=== PATIENT | female | born 1935 | race African-American/Black ===

== ENCOUNTER → 2016-07-17 | Outpatient (CLI) | payer MEDICARE, MEDICAID ==
[~2016-07-17] MED LIST: AGGRENOX ER 251 CER PO; ATIVAN 0.50.5 MG/TAB PO; BACTRIM DS 8001 TAB PO; BISACODYL10 MG RC; CALCIUM CARB W/1 TA1 PO; COLACE 100100 MG/CAP PO; COZAAR 25MG25 MG/TAB PO; COZAAR100 MG PO; EPA FISH OIL1000 MG PO; EPA/GLA1 SGL PO; ERY-TAB250 MG PO; FENTANYL 25 MCG TP; FENTANYL 50MCG TOP; FERROUS SU325 MG/TAB PO; FOSAMAX 70MG TA70 MG PO; HCTZ 25MG TAB25 MG PO; HCTZ 25MG25 MG PO; HUMALOG SQ; HUMALOG100 U/ML SC; HUMALOG100 U/ML SQ; IRON325 M1 PO; JUVEN PO; LANTUS100 U/ML SC; LEVEMIR100 U/ML SQ; LEXAPRO 10MG10 MG PO; LIPITOR 10MG10 MG PO; LIPITOR40 MG PO; LORTAB 10/500 51 TAB PO; LORTAB 5/500 501 TAB PO; MACROBID 1100 MG/CAP PO; MERREM IV; MIRALAX PA17 GM/Dose PO; MYLANTA 150 ML150 M1 PO; NORCO 325 MG-51 TAB PO; NORCO 325 MG-7.1 TAB PO; NORVASC 5MG5 MG/TAB PO; NOVLOG; NOVLOG SQ; NOVOLOG 100U100 U/M1; NOVOLOG 100U100 U/M1 SC; NOVOLOG 100U100 U/M1 SQ; OXECTA5 MG PO; OXY IR5 MG PO; OXYCONTIN 10MG10 MG PO; PEPCID 20MG TAB20 MG PO; PLAVIX 75MG TAB75 MG PO; PRILOSEC 20MG20 MG PO; PROCRIT 2,02 MU/VIAL IJ; PROSOURCE PLUS946 ML PO; REGLAN 5MG T5 MG/TAB PO; SILVADENE CREAM1 TU TP; SYSTANE 0.4%-0.1 SOL OU; TEGRETOL 1100 MG/TAB PO; THEREMS-M1 TAB PO; TYLENOL 325MG325 MG PO; VANCOMYCIN 11 G/VIAL IV; VITAMIN C500 MG PO; ZOCOR 40MG40 MG PO; ZOFRAN 4MG T4 MG/TAB; ZOFRAN 4MG T4 MG/TAB PO; [UNRECOGNIZED DRUG - OTHER] PO
[2016-07-17 12:15] LABS: PH 6 (5-8); SQUAMOUS EPITHELIAL 0-2 /hpf; URINE APPEARANCE Cloudy; URINE BACTERIA Rare /hpf; URINE BILIRUBIN Negative (NEGATIVE); URINE BLOOD Negative (NEGATIVE); URINE COLOR Yellow; URINE GLUCOSE Negative (NEGATIVE); URINE KETONE Negative (NEGATIVE); URINE UROBILINOGEN Negative (NEGATIVE); URINE WBC >50 /hpf
== END ==
LOC: ZLAB.STJ 11:22 → ZCOL.LAB 11:22
PROVIDERS: Internal Medicine
DX: Z01.89 Encounter for other specified special examinations (principal)

== ENCOUNTER → 2016-07-18 | Outpatient (CLI) | payer MEDICARE, MEDICAID ==
[2016-07-18 15:23] LABS: MEAN CELL VOLUME 103 fl (80.0-100.0); MEAN CORPUSCULAR HGB CONC 32 g/dl (33.0-37.0); MEAN PLATELET VOLUME 9.9 fl (7.4-10.4); PLATELET COUNT 296 K/mm3 (130-400); RED BLOOD COUNT 3.05 M/mm3 (4.10-5.30); REDCELL DISTRIBUTION WIDTH-CV 12.2 % (11.5-14.5); WHITE BLOOD COUNT 8.2 K/mm3 (4.8-10.8)
[2016-07-18 15:28] LABS: CREATININE, serum 1.35 mg/dL (0.52-1.25); POTASSIUM 4.2 mmol/L (3.4-5.0)
[2016-07-18 15:51] LABS: HEMATOCRIT 31.5 % (37.0-47.0); HEMOGLOBIN 10.2 g/dl (12.5-16.0); MEAN CORPUSCULAR HEMOGLOBIN 33 pg (27.0-31.0)
== END ==
LOC: COL.LAB 14:35
PROVIDERS: Internal Medicine
DX: N18.9 Chronic kidney disease, unspecified (principal); D64.89 Other specified anemias

== ENCOUNTER → 2016-08-24 | Outpatient (REF) ==
[2016-08-24 14:42] LABS: HIV-1p24 Antigen Non-Reactive
[2016-08-24 14:43] LABS: HIV 1/2 Antibodies Non-Reactive
== END ==
LOC: ZLAB.STJ 14:18
PROVIDERS: Internal Medicine
DX: Z01.89 Encounter for other specified special examinations (principal)

== ENCOUNTER → 2017-01-22 | Outpatient (CLI) | payer MEDICARE, MEDICAID | LOC: ZCOL.LAB 06:25 | DX: E11.319 Type 2 diabetes mellitus with unspecified diabetic retinopathy without macular edema (principal) ==

== ENCOUNTER → 2017-06-21 | Outpatient (CLI) | payer MEDICARE, MEDICAID ==
[2017-06-21 17:51] LABS: ADJUSTED CALCIUM 9.3 mg/dL (8.4-10.2); ALBUMIN 4.8 gm/dL (3.5-5.0); BILIRUBIN,TOTAL 0.5 mg/dL (0.0-1.0); CALCIUM 9.9 mg/dL (8.4-10.2); CREATININE, serum 1.26 mg/dL (0.52-1.25); POTASSIUM 4.3 mmol/L (3.4-5.0)
== END ==
LOC: COL.LAB 13:50 → ZLAB.STJ 13:50
PROVIDERS: Internal Medicine
DX: E83.52 Hypercalcemia (principal)

== ENCOUNTER → 2017-06-22 | Outpatient (CLI) | payer MEDICARE, MEDICAID ==
[2017-06-22 04:16] LABS: HIV 1/2 Antibodies Non-Reactive; HIV-1p24 Antigen Non-Reactive
[2017-06-22 15:58] LABS: HEPATITIS B SURFACE AB-QL Negative (()); HEPATITIS B SURFACE ANTIBODY <2.0 (())
== END ==
LOC: ZCOL.LAB 03:48
DX: Z01.89 Encounter for other specified special examinations (principal)

== ENCOUNTER → 2017-09-04 | Outpatient (CLI) | payer MEDICARE, MEDICAID ==
[2017-09-04 14:54] LABS: BASO # 0.1 (0.0-0.2); BASO % 0.6 % (0.0-2.0); EOS # 0.5 (0.0-0.7); EOS % 5.4 % (0-4.0); GRAN # 5.5 (1.4-6.5); GRAN % 59.1 % (42.2-75.2); LYMPH # 2.4 (1.2-3.4); LYMPH % 26.2 % (20.0-51.0); MEAN CELL VOLUME 99 fl (80.0-100.0); MEAN CORPUSCULAR HGB CONC 34 g/dl (33.0-37.0); MEAN PLATELET VOLUME 11.4 fl (7.4-10.4); MONO # 0.7 (0.1-0.6); MONO % 7.8 % (1.7-9.3); PLATELET COUNT 194 K/mm3 (130-400); RED BLOOD COUNT 3.23 M/mm3 (4.10-5.30)
[2017-09-04 14:58] LABS: HEMATOCRIT 32.1 % (37.0-47.0); HEMOGLOBIN 10.8 g/dl (12.5-16.0); MEAN CORPUSCULAR HEMOGLOBIN 33 pg (27.0-31.0)
[2017-09-04 15:15] LABS: ALBUMIN 4.6 gm/dL (3.5-5.0); BILIRUBIN,TOTAL 0.3 mg/dL (0.0-1.0); CALCIUM 9.5 mg/dL (8.4-10.2); CREATININE, serum 1.26 mg/dL (0.52-1.25); POTASSIUM 4.9 mmol/L (3.4-5.0); TOTAL PROTEIN 8.5 gm/dL (6.4-8.2)
== END ==
LOC: ZLAB.STJ 14:48
PROVIDERS: Internal Medicine
DX: E11.311 Type 2 diabetes mellitus with unspecified diabetic retinopathy with macular edema (principal)

== ENCOUNTER → 2017-09-20 | Outpatient (REF) ==
[2017-09-20 14:44] LABS: CALCIUM 10.2 mg/dL (8.4-10.2); CREATININE, serum 1.36 mg/dL (0.52-1.25); POTASSIUM 5.1 mmol/L (3.4-5.0)
== END ==
LOC: ZLAB.STJ 14:11
PROVIDERS: Internal Medicine
DX: Z01.89 Encounter for other specified special examinations (principal)

== ENCOUNTER → 2017-10-15 | Outpatient (CLI) | payer MEDICARE, MEDICAID ==
[2017-10-15 14:29] LABS: BASO # 0.1 (0.0-0.2); BASO % 0.7 % (0.0-2.0); EOS # 0.4 (0.0-0.7); EOS % 4.3 % (0-4.0); GRAN # 5.8 (1.4-6.5); GRAN % 58.2 % (42.2-75.2); LYMPH # 2.9 (1.2-3.4); LYMPH % 29.3 % (20.0-51.0); MEAN CELL VOLUME 99 fl (80.0-100.0); MEAN CORPUSCULAR HGB CONC 33 g/dl (33.0-37.0); MEAN PLATELET VOLUME 10.8 fl (7.4-10.4); MONO # 0.7 (0.1-0.6); MONO % 6.9 % (1.7-9.3); PLATELET COUNT 270 K/mm3 (130-400); RED BLOOD COUNT 3.58 M/mm3 (4.10-5.30); REDCELL DISTRIBUTION WIDTH-CV 12.2 % (11.5-14.5)
[2017-10-15 14:32] LABS: HEMATOCRIT 35.5 % (37.0-47.0); HEMOGLOBIN 11.7 g/dl (12.5-16.0); MEAN CORPUSCULAR HEMOGLOBIN 33 pg (27.0-31.0)
== END ==
LOC: ZLAB.STJ 14:25
PROVIDERS: Internal Medicine
DX: D64.9 Anemia, unspecified (principal)

== ENCOUNTER → 2017-11-15 | Outpatient (CLI) | payer MEDICARE, MEDICAID ==
[2017-11-15 10:14] LABS: CALCIUM 10.1 mg/dL (8.4-10.2); CREATININE, serum 1.34 mg/dL (0.52-1.25)
== END ==
LOC: ZLAB.STJ 09:50
PROVIDERS: Internal Medicine
DX: R79.89 Other specified abnormal findings of blood chemistry (principal)

== ENCOUNTER → 2018-01-24 | Outpatient (CLI) | payer MEDICARE, MEDICAID ==
[2018-01-24 16:01] LABS: BASO # 0.1 (0.0-0.2); BASO % 0.5 % (0.0-2.0); EOS # 0.3 (0.0-0.7); EOS % 2.9 % (0-4.0); GRAN # 6.1 (1.4-6.5); GRAN % 66.4 % (42.2-75.2); HEMOGLOBIN 11.3 g/dl (12.5-16.0); LYMPH % 21.7 % (20.0-51.0); MEAN CELL VOLUME 99 fl (80.0-100.0); MEAN CORPUSCULAR HEMOGLOBIN 33 pg (27.0-31.0); MEAN CORPUSCULAR HGB CONC 34 g/dl (33.0-37.0); MEAN PLATELET VOLUME 11.3 fl (7.4-10.4); MONO # 0.7 (0.1-0.6); MONO % 8.1 % (1.7-9.3); PLATELET COUNT 336 K/mm3 (130-400); RED BLOOD COUNT 3.38 M/mm3 (4.10-5.30); REDCELL DISTRIBUTION WIDTH-CV 12.3 % (11.5-14.5)
[2018-01-24 16:08] LABS: HEMATOCRIT 33.6 % (37.0-47.0)
[2018-01-24 16:14] LABS: ALBUMIN 4.7 gm/dL (3.5-5.0); BILIRUBIN,TOTAL 0.3 mg/dL (0.0-1.0); CREATININE, serum 1.36 mg/dL (0.52-1.25); TOTAL PROTEIN 8.5 gm/dL (6.4-8.2)
== END ==
LOC: ZLAB.STJ 15:05
PROVIDERS: Internal Medicine
DX: E11.51 Type 2 diabetes mellitus with diabetic peripheral angiopathy without gangrene (principal); R79.89 Other specified abnormal findings of blood chemistry; Z79.4 Long term (current) use of insulin

== ENCOUNTER → 2018-04-22 | Outpatient (CLI) | payer MEDICARE, MEDICAID | LOC: ZLAB.STJ 14:23 | DX: N18.9 Chronic kidney disease, unspecified (principal); E78.5 Hyperlipidemia, unspecified ==

== ENCOUNTER → 2018-07-24 | Outpatient (CLI) | payer MEDICARE, MEDICAID ==
[2018-07-24 10:19] LABS: BASO % 0.4 % (0.0-2.0); EOS # 0.6 (0.0-0.7); EOS % 7.8 % (0-4.0); GRAN # 4.4 (1.4-6.5); GRAN % 55.4 % (42.2-75.2); HEMOGLOBIN 10.1 g/dl (12.5-16.0); LYMPH # 2.2 (1.2-3.4); LYMPH % 26.9 % (20.0-51.0); MEAN CELL VOLUME 101 fl (80.0-100.0); MEAN CORPUSCULAR HEMOGLOBIN 33 pg (27.0-31.0); MEAN CORPUSCULAR HGB CONC 32 g/dl (33.0-37.0); MEAN PLATELET VOLUME 10.5 fl (7.4-10.4); MONO # 0.7 (0.1-0.6); MONO % 8.9 % (1.7-9.3); PLATELET COUNT 301 K/mm3 (130-400); RED BLOOD COUNT 3.09 M/mm3 (4.10-5.30); REDCELL DISTRIBUTION WIDTH-CV 12.2 % (11.5-14.5)
[2018-07-24 10:22] LABS: HEMATOCRIT 31.3 % (37.0-47.0)
[2018-07-24 10:27] LABS: CALCIUM 9.7 mg/dL (8.4-10.2); CREATININE, serum 1.44 mg/dL (0.52-1.25); POTASSIUM 5.2 mmol/L (3.4-5.0)
== END ==
LOC: ZLAB.STJ 09:36
PROVIDERS: Internal Medicine
DX: R79.89 Other specified abnormal findings of blood chemistry (principal); R73.09 Other abnormal glucose

== ENCOUNTER → 2018-08-07 | Outpatient (CLI) | payer MEDICARE, MEDICAID | LOC: ZLAB.STJ 10:19 | DX: E87.5 Hyperkalemia (principal) ==

== ENCOUNTER → 2018-08-25 | Outpatient (CLI) | payer MEDICARE ==
[2018-08-25 15:23] LABS: CALCIUM 9.8 mg/dL (8.4-10.2); CREATININE, serum 1.2 mg/dL (0.52-1.25); POTASSIUM 4.6 mmol/L (3.4-5.0)
== END ==
LOC: ZLAB.STJ 14:26
PROVIDERS: Internal Medicine
DX: N18.9 Chronic kidney disease, unspecified (principal)

== ENCOUNTER → 2018-11-26 | Outpatient (CLI) | payer MEDICARE ==
[2018-11-26 13:26] LABS: HEMATOCRIT 33.8 % (37.0-47.0); HEMOGLOBIN 10.7 g/dl (12.5-16.0)
[2018-11-26 13:40] LABS: CREATININE, serum 1.39 (0.52-1.25); POTASSIUM 5.2 mmol/L (3.4-5.0)
== END ==
LOC: ZLAB.STJ 10:33
PROVIDERS: Internal Medicine
DX: E78.5 Hyperlipidemia, unspecified (principal); E11.319 Type 2 diabetes mellitus with unspecified diabetic retinopathy without macular edema

== ENCOUNTER → 2019-03-19 | Outpatient (CLI) | payer MEDICARE ==
[2019-03-19 20:31] LABS: BASO % 0.4 % (0.0-2.0); EOS # 0.3 (0.0-0.7); GRAN # 5.3 (1.4-6.5); GRAN % 57.4 % (42.2-75.2); HEMOGLOBIN 11.5 g/dl (12.5-16.0); LYMPH # 2.8 (1.2-3.4); LYMPH % 30.9 % (20.0-51.0); MEAN CELL VOLUME 103 fl (80.0-100.0); MEAN CORPUSCULAR HEMOGLOBIN 33 pg (27.0-31.0); MEAN CORPUSCULAR HGB CONC 32 g/dl (33.0-37.0); MEAN PLATELET VOLUME 11.3 fl (7.4-10.4); MONO # 0.7 (0.1-0.6); MONO % 7.9 % (1.7-9.3); PLATELET COUNT 334 K/mm3 (130-400); REDCELL DISTRIBUTION WIDTH-CV 12.3 % (11.5-14.5)
[2019-03-19 20:43] LABS: ALBUMIN 5.1 gm/dL (3.5-5.0); BILIRUBIN,TOTAL 0.3 mg/dL (0.0-1.0); CALCIUM 10.3 mg/dL (8.4-10.2); CREATININE, serum 1.69 (0.52-1.25); POTASSIUM 4.9 mmol/L (3.4-5.0); TOTAL PROTEIN 9.9 gm/dL (6.4-8.2)
[2019-03-19 21:12] LABS: THYROID STIMULATING HORMONE 1.28 uIU/mL (0.465-4.680)
== END ==
LOC: ZLAB.STJ 19:00
PROVIDERS: Internal Medicine
DX: E11.311 Type 2 diabetes mellitus with unspecified diabetic retinopathy with macular edema (principal); N17.9 Acute kidney failure, unspecified

== ENCOUNTER → 2019-04-06 | Outpatient (CLI) | payer MEDICARE ==
[2019-04-06 12:44] LABS: HEMOGLOBIN 10.5 g/dl (12.5-16.0)
[2019-04-06 12:45] LABS: HEMATOCRIT 32.2 % (37.0-47.0)
[2019-04-06 12:50] LABS: ALBUMIN 4.4 gm/dL (3.5-5.0); BILIRUBIN,TOTAL 0.2 mg/dL (0.0-1.0); CALCIUM 9.9 mg/dL (8.4-10.2); CREATININE, serum 1.26 (0.52-1.25); POTASSIUM 4.7 mmol/L (3.4-5.0); TOTAL PROTEIN 8.1 gm/dL (6.4-8.2)
[2019-04-07 00:18] LABS: FOLATE (FOLIC ACID) 3.6 ng/mL (7.0-31.4)
== END ==
LOC: ZLAB.STJ 10:04
PROVIDERS: Internal Medicine
DX: D64.9 Anemia, unspecified (principal); N18.4 Chronic kidney disease, stage 4 (severe)

== ENCOUNTER → 2019-04-22 | Outpatient (CLI) | payer MEDICARE, MEDICAID ==
[2019-04-22 13:17] LABS: ALANINE AMINOTRANSFERASE 25 U/L (9-52); AST,SGOT 20 U/L (15-37)
== END ==
LOC: ZLAB.STJ 12:18
PROVIDERS: Internal Medicine
DX: R74.0 Nonspecific elevation of levels of transaminase and lactic acid dehydrogenase [LDH] (principal)

== ENCOUNTER → 2019-05-18 | Outpatient (CLI) | payer MEDICARE, MEDICAID ==
[2019-05-18 11:38] LABS: CHOLESTEROL RISK RATIO 4.3
== END ==
LOC: ZLAB.STJ 10:50
PROVIDERS: Internal Medicine
DX: E78.5 Hyperlipidemia, unspecified (principal)

== ENCOUNTER → 2019-11-24 | Outpatient (CLI) | payer MEDICARE, MEDICAID ==
[2019-11-24 14:29] LABS: HEMATOCRIT 29.8 % (37.0-47.0); HEMOGLOBIN 9.7 g/dl (12.5-16.0)
[2019-11-24 14:31] LABS: CALCIUM 9.5 mg/dL (8.4-10.2); CREATININE, serum 1.25 (0.52-1.25); POTASSIUM 5.1 mmol/L (3.4-5.0)
== END ==
LOC: ZLAB.STJ 13:27
PROVIDERS: Internal Medicine
DX: E11.319 Type 2 diabetes mellitus with unspecified diabetic retinopathy without macular edema (principal); I10 Essential (primary) hypertension; D64.9 Anemia, unspecified

== ENCOUNTER → 2019-12-28 | Outpatient (CLI) | payer MEDICARE, MEDICAID ==
[2019-12-28 17:00] LABS: HEMOGLOBIN 10.5 g/dl (12.5-16.0)
[2019-12-28 17:01] LABS: HEMATOCRIT 32.5 % (37.0-47.0)
== END ==
LOC: ZLAB.STJ 16:46
PROVIDERS: Internal Medicine
DX: D64.9 Anemia, unspecified (principal)

== ENCOUNTER → 2020-01-18 | Outpatient (CLI) | payer MEDICARE, MEDICAID ==
[2020-01-18 13:43] LABS: CALCIUM 9.7 mg/dL (8.4-10.2); CREATININE, serum 1.53 (0.52-1.25)
[2020-01-18 14:02] LABS: HEMATOCRIT 30.7 % (37.0-47.0); HEMOGLOBIN 9.9 g/dl (12.5-16.0)
== END ==
LOC: ZLAB.STJ 10:24
PROVIDERS: Internal Medicine
DX: D64.9 Anemia, unspecified (principal)

== ENCOUNTER → 2020-05-18 | Outpatient (CLI) | payer MEDICARE, MEDICAID ==
[2020-05-18 13:57] LABS: CHOLESTEROL RISK RATIO 4.9
== END ==
LOC: ZCOL.LAB 13:13 → ZLAB.STJ 13:13
PROVIDERS: Internal Medicine
DX: E78.5 Hyperlipidemia, unspecified (principal)

== ENCOUNTER → 2020-05-24 | Outpatient (CLI) | payer MEDICARE, MEDICAID ==
[2020-05-24 12:15] LABS: BASO # 0.1 (0.0-0.2); BASO % 0.7 % (0.0-2.0); EOS # 0.4 (0.0-0.7); EOS % 5.2 % (0-4.0); GRAN # 3.4 (1.4-6.5); GRAN % 45.8 % (42.2-75.2); HEMATOCRIT 31.7 % (37.0-47.0); HEMOGLOBIN 10.3 g/dl (12.5-16.0); LYMPH % 39.7 % (20.0-51.0); MEAN CELL VOLUME 105 fl (80.0-100.0); MEAN CORPUSCULAR HEMOGLOBIN 34 pg (27.0-31.0); MEAN CORPUSCULAR HGB CONC 33 g/dl (33.0-37.0); MONO # 0.6 (0.1-0.6); MONO % 8.2 % (1.7-9.3); PLATELET COUNT 280 K/mm3 (130-400); RED BLOOD COUNT 3.01 M/mm3 (4.10-5.30); REDCELL DISTRIBUTION WIDTH-CV 12.2 % (11.5-14.5)
[2020-05-24 12:22] LABS: ALBUMIN 4.4 gm/dL (3.5-5.0); BILIRUBIN,TOTAL 0.4 mg/dL (0.0-1.0); CALCIUM 9.6 mg/dL (8.4-10.2); CREATININE, serum 1.59 (0.52-1.25); POTASSIUM 5.4 mmol/L (3.4-5.0); TOTAL PROTEIN 8.3 gm/dL (6.4-8.2)
[2020-05-24 13:32] LABS: THYROID STIMULATING HORMONE 1.8 uIU/mL (0.465-4.680)
== END ==
LOC: ZLAB.STJ 11:28
PROVIDERS: Internal Medicine
DX: D64.9 Anemia, unspecified (principal); E11.319 Type 2 diabetes mellitus with unspecified diabetic retinopathy without macular edema; E03.9 Hypothyroidism, unspecified; I10 Essential (primary) hypertension

== ENCOUNTER → 2020-05-25 | Outpatient (CLI) | payer MEDICARE, MEDICAID ==
[2020-05-25 19:41] LABS: HIV 1/2 Antibodies Non-Reactive; HIV-1p24 Antigen Non-Reactive
[2020-05-26 16:48] LABS: HEPATITIS B SURFACE ANTIBODY <2.0 (()); HEPATITIS B SURFACE ANTIGEN Negative (Negative)
== END ==
LOC: ZLAB.STJ 16:59
PROVIDERS: Internal Medicine
DX: W46.0XXA Contact with hypodermic needle, initial encounter (principal)

== ENCOUNTER → 2020-07-12 | Outpatient (CLI) | payer MEDICARE, MEDICAID ==
[2020-07-12 10:35] LABS: HEMOGLOBIN 9.8 g/dl (12.5-16.0)
[2020-07-12 10:36] LABS: HEMATOCRIT 29.3 % (37.0-47.0)
[2020-07-12 10:41] LABS: CALCIUM 9.8 mg/dL (8.4-10.2); CREATININE, serum 1.31 (0.52-1.25); POTASSIUM 4.9 mmol/L (3.4-5.0)
== END ==
LOC: ZLAB.STJ 10:28
PROVIDERS: Internal Medicine
DX: D46.9 Myelodysplastic syndrome, unspecified (principal); I10 Essential (primary) hypertension; N13.2 Hydronephrosis with renal and ureteral calculous obstruction

== ENCOUNTER → 2020-09-05 | Outpatient (CLI) | payer MEDICARE, MEDICAID ==
[~2020-09-05] MED LIST changes: +ASPERCREME1 EACH TP; +ASPIRIN 81M81 MG/TA2 PO; +ASPIRIN E.C. 8181 MG PO; +DORYX BC; +FLONASEALLERGY NS; +FLOVENT DI50 MCG/Act IH; +FOLIC ACID 11 MG/TA1 PO; +GLUCOPHAGE500 MG/TAB PO; +IMODIUM 2MG CAPS2 MG PO; +INSULIN AS100 UNIT/2 SQ; +MOISTURE TOP; +NORVASC 10MG10 MG PO; +ONE-A-DAY ESSE1 EACH PO; +PHENERGAN 25 TA25 MG PO; +PRAVACHOL 20MG20 MG PO; +SENNA-LAX8.6 MG PO; +SENOKOT S 50 MG1 TAB PO; +ZOFRAN ODT4 MG PO; +ZYRTEC 10MG10 MG PO; +[UNRECOGNIZED DRUG - OTHER] TD
[2020-09-05 11:03] LABS: BASO % 0.5 % (0.0-2.0); EOS # 0.3 (0.0-0.7); EOS % 4.1 % (0-4.0); GRAN # 3.5 (1.4-6.5); GRAN % 46.7 % (42.2-75.2); LYMPH # 2.9 (1.2-3.4); LYMPH % 38.9 % (20.0-51.0); MEAN CELL VOLUME 105 fl (80.0-100.0); MEAN CORPUSCULAR HGB CONC 33 g/dl (33.0-37.0); MEAN PLATELET VOLUME 10.6 fl (7.4-10.4); MONO # 0.7 (0.1-0.6); MONO % 9.4 % (1.7-9.3); PLATELET COUNT 272 K/mm3 (130-400); RED BLOOD COUNT 2.64 M/mm3 (4.10-5.30); REDCELL DISTRIBUTION WIDTH-CV 11.8 % (11.5-14.5)
[2020-09-05 11:08] LABS: HEMATOCRIT 27.8 % (37.0-47.0); HEMOGLOBIN 9.1 g/dl (12.5-16.0); MEAN CORPUSCULAR HEMOGLOBIN 34 pg (27.0-31.0)
[2020-09-05 11:15] LABS: ALBUMIN 3.9 gm/dL (3.5-5.0); BILIRUBIN,TOTAL 0.1 mg/dL (0.0-1.0); CALCIUM 9.4 mg/dL (8.4-10.2); CREATININE, serum 1.47 (0.52-1.25); POTASSIUM 4.9 mmol/L (3.4-5.0); TOTAL PROTEIN 7.3 gm/dL (6.4-8.2)
== END ==
LOC: ZLAB.STJ 10:20
PROVIDERS: Internal Medicine
DX: I10 Essential (primary) hypertension (principal); E11.311 Type 2 diabetes mellitus with unspecified diabetic retinopathy with macular edema; D44.9 Neoplasm of uncertain behavior of unspecified endocrine gland

== ENCOUNTER → 2020-10-12 | Outpatient (CLI) | payer MEDICARE, MEDICAID ==
[2020-10-12 15:36] LABS: COLLECTION METHOD CLEAN CATCH
[2020-10-12 16:03] LABS: BUDDING YEAST Present /hpf; MUCOUS Present /lpf; PH 6 (5-8); URINE APPEARANCE Turbid; URINE BACTERIA Many /hpf; URINE BILIRUBIN Negative (NEGATIVE); URINE BLOOD 1+ (NEGATIVE); URINE COLOR Yellow; URINE GLUCOSE Negative (NEGATIVE); URINE KETONE Negative (NEGATIVE); URINE LEUKOCYTE ESTERASE 3+ (NEGATIVE); URINE NITRATE Negative (NEGATIVE); URINE PROTEIN(semi-quant) 2+ (NEGATIVE); URINE RBC 20-50 /hpf; URINE UROBILINOGEN Negative (NEGATIVE)
[2020-10-12 17:00] LABS: CALCIUM 9.9 mg/dL (8.4-10.2); CREATININE, serum 1.29 (0.52-1.25); POTASSIUM 5.4 mmol/L (3.4-5.0)
== END ==
LOC: ZLAB.STJ 15:14
PROVIDERS: Internal Medicine
DX: N39.0 Urinary tract infection, site not specified (principal); I10 Essential (primary) hypertension

== ENCOUNTER → 2020-10-27 | Outpatient (CLI) | payer MEDICARE, MEDICAID ==
[2020-10-27 11:34] LABS: CALCIUM 9.8 mg/dL (8.4-10.2); CREATININE, serum 1.57 (0.52-1.25); POTASSIUM 5.3 mmol/L (3.4-5.0)
== END ==
LOC: ZLAB.STJ 10:27
PROVIDERS: Internal Medicine
DX: I10 Essential (primary) hypertension (principal)

== ENCOUNTER → 2020-11-23 | Outpatient (CLI) | payer MEDICARE, MEDICAID ==
[2020-11-23 12:32] LABS: CALCIUM 10.1 mg/dL (8.4-10.2); CREATININE, serum 1.25 (0.52-1.25)
[2020-11-23 12:43] LABS: BASO % 0.5 % (0.0-2.0); EOS # 0.4 (0.0-0.7); EOS % 4.7 % (0-4.0); GRAN # 3.6 (1.4-6.5); GRAN % 48.4 % (42.2-75.2); LYMPH # 2.8 (1.2-3.4); LYMPH % 37.2 % (20.0-51.0); MEAN CELL VOLUME 106 fl (80.0-100.0); MEAN CORPUSCULAR HGB CONC 33 g/dl (33.0-37.0); MONO # 0.7 (0.1-0.6); MONO % 8.7 % (1.7-9.3); PLATELET COUNT 299 K/mm3 (130-400); RED BLOOD COUNT 2.81 M/mm3 (4.10-5.30); REDCELL DISTRIBUTION WIDTH-CV 11.9 % (11.5-14.5)
[2020-11-23 12:47] LABS: HEMATOCRIT 29.8 % (37.0-47.0); HEMOGLOBIN 9.8 g/dl (12.5-16.0); MEAN CORPUSCULAR HEMOGLOBIN 35 pg (27.0-31.0)
== END ==
LOC: ZLAB.STJ 11:20
PROVIDERS: Internal Medicine
DX: D64.9 Anemia, unspecified (principal); I10 Essential (primary) hypertension

== ENCOUNTER 2021-01-13 12:56 | Day surgery (SDC) | payer MEDICARE, MEDICAID ==
[~2021-01-13] VITALS: Ht 162.6 cm; Wt 54.2 kg
[~2021-01-13 12:56] MED LIST changes: -ASPERCREME1 EACH TP; -ASPIRIN 81M81 MG/TA2 PO; -ASPIRIN E.C. 8181 MG PO; -DORYX BC; -FLONASEALLERGY NS; -FLOVENT DI50 MCG/Act IH; -FOLIC ACID 11 MG/TA1 PO; -GLUCOPHAGE500 MG/TAB PO; -IMODIUM 2MG CAPS2 MG PO; -INSULIN AS100 UNIT/2 SQ; -MOISTURE TOP; -NORVASC 10MG10 MG PO; -ONE-A-DAY ESSE1 EACH PO; -PHENERGAN 25 TA25 MG PO; -PRAVACHOL 20MG20 MG PO; -SENNA-LAX8.6 MG PO; -SENOKOT S 50 MG1 TAB PO; -ZOFRAN ODT4 MG PO; -ZYRTEC 10MG10 MG PO; -[UNRECOGNIZED DRUG - OTHER] TD
[2021-01-13 15:00] VITALS: PULSE 88; TEMP 98.3
[2021-01-13 15:13] LABS: CALCIUM 9.7 mg/dL (8.4-10.2); CREATININE, serum 1.27 (0.52-1.25)
[2021-01-13] MEDS ORDERED: FLOVENT DI50 MCG/Act IH (15:25)
[2021-01-13] MEDS ORDERED: AGGRENOX ER 251 CER PO (15:25)
[2021-01-13] MEDS ORDERED: MIRALAX PA17 GM/Dose PO (15:29)
[2021-01-13] MEDS ORDERED: COZAAR100 MG PO (15:30)
[2021-01-13] MEDS ORDERED: PRAVACHOL 20MG20 MG PO (15:31)
[2021-01-13] MEDS ORDERED: ASPERCREME1 EACH TP (15:32)
[2021-01-13] MEDS ORDERED: NORVASC 10MG10 MG PO (15:34)
[2021-01-13] MEDS ORDERED: FOLIC ACID 11 MG/TA1 PO (15:36)
[2021-01-13] MEDS ORDERED: IMODIUM 2MG CAPS2 MG PO (15:36)
[2021-01-13] MEDS ORDERED: [UNRECOGNIZED DRUG - OTHER] TD (15:37)
[2021-01-13] MEDS ORDERED: ZYRTEC 10MG10 MG PO (15:38)
[2021-01-13] MEDS ORDERED: SENNA-LAX8.6 MG PO (15:39)
[2021-01-13] MEDS ORDERED: NORCO 325 MG-51 TAB PO (15:40)
[2021-01-13] MEDS ORDERED: INSULIN AS100 UNIT/2 SQ (15:43)
[2021-01-13] MEDS ORDERED: ONE-A-DAY ESSE1 EACH PO (15:44)
[2021-01-13] MEDS ORDERED: ASPIRIN E.C. 8181 MG PO (15:45)
[2021-01-13] MEDS ORDERED: MOISTURE TOP (15:46)
[2021-01-13 16:03] VITALS: BP 132/66; PULSE 78
--- NOTE | 2021-01-13 16:03 | NUR ---
TO RM 8 PER CART FROM OR. PATIENT VERY TALKITIVE AND HARD TO UNDERSTAND DUE TO HX OF STROKE. 02 SAT 99% ON ROOM AIR. DRESSING OVER RIGHT FOOT CLEAN DRY INTACT.
[2021-01-13 16:20] VITALS: BP 119/76; PULSE 69
--- NOTE | 2021-01-13 16:20 | NUR ---
REPOSITIONED PATIENT UP IN BED. BRIAN CARDOZA LIQUOR GRINDING MILL OPERATOR NOTIFIED- NO NEW ORDERS IF EATING. RECEIVED BLUEBERRY MUFFIN AND FED SELF. DAUGHTER INTO SEE PATIENT.
--- NOTE | 2021-01-13 16:30 | NUR ---
PATIENT INCONTINENT OF BOWEL MOVEMENT. RECIEVED LETICIA-CARE AND ASSIST BACK TO OWN WC PER LIFT. RECEIVED 2ND MUFFIN AND ATE 100%. REPORT CALLED TO GREGORIA AT [facility]. DAUGHTER UPDATED WITH BLOOD SUGARS AND CURRENT CARE. SENT A PRESCRIPTION TO [facility].(ALSO REPORTED TO KEITH JORDY)
[2021-01-13] MEDS ORDERED: DORYX BC ×2 (16:38)
--- NOTE | 2021-01-13 17:00 | NUR ---
DISCHARGED PER BY NURSING STAFF TO [facility] IN CARE OF [facility].
== END 2021-01-13 17:13 | disposition home or self-care (01) ==
LOC: SDCO 12:56
PROVIDERS: Nurse Anesthetist, Certified Registered
DX: E11.69 Type 2 diabetes mellitus with other specified complication (principal); M86.9 Osteomyelitis, unspecified; I73.9 Peripheral vascular disease, unspecified; I13.10 Hypertensive heart and chronic kidney disease without heart failure, with stage 1 through stage 4 chronic kidney disease, or unspecified chronic kidney disease; E11.22 Type 2 diabetes mellitus with diabetic chronic kidney disease; E78.00 Pure hypercholesterolemia, unspecified; E11.43 Type 2 diabetes mellitus with diabetic autonomic (poly)neuropathy; K31.84 Gastroparesis; N18.32 Chronic kidney disease, stage 3b; E11.40 Type 2 diabetes mellitus with diabetic neuropathy, unspecified; G81.94 Hemiplegia, unspecified affecting left nondominant side; D64.9 Anemia, unspecified; Z86.73 Personal history of transient ischemic attack (TIA), and cerebral infarction without residual deficits; Z79.899 Other long term (current) drug therapy; Z89.612 Acquired absence of left leg above knee; Z79.891 Long term (current) use of opiate analgesic; Z79.4 Long term (current) use of insulin; Z79.82 Long term (current) use of aspirin
CPT/HCPCS: J0690; J2704; J7030

== ENCOUNTER → 2021-01-23 | Outpatient (CLI) | payer MEDICARE, MEDICAID ==
[~2021-01-23] MED LIST changes: +ASPERCREME1 EACH TP; +ASPIRIN 81M81 MG/TA2 PO; +ASPIRIN E.C. 8181 MG PO; +DORYX BC; +FLONASEALLERGY NS; +FLOVENT DI50 MCG/Act IH; +FOLIC ACID 11 MG/TA1 PO; +GLUCOPHAGE500 MG/TAB PO; +IMODIUM 2MG CAPS2 MG PO; +INSULIN AS100 UNIT/2 SQ; +MOISTURE TOP; +NORVASC 10MG10 MG PO; +ONE-A-DAY ESSE1 EACH PO; +PHENERGAN 25 TA25 MG PO; +PRAVACHOL 20MG20 MG PO; +SENNA-LAX8.6 MG PO; +SENOKOT S 50 MG1 TAB PO; +ZOFRAN ODT4 MG PO; +ZYRTEC 10MG10 MG PO; +[UNRECOGNIZED DRUG - OTHER] TD
== END ==
LOC: ZLAB.STJ 09:25
DX: N18.9 Chronic kidney disease, unspecified (principal); D63.1 Anemia in chronic kidney disease

== ENCOUNTER → 2021-01-25 | Outpatient (CLI) | payer MEDICARE, MEDICAID ==
[2021-01-25 12:23] LABS: BASO % 0.4 % (0.0-2.0); EOS # 0.1 (0.0-0.7); EOS % 1.2 % (0-4.0); GRAN # 4.5 (1.4-6.5); GRAN % 52.8 % (42.2-75.2); LYMPH % 35.4 % (20.0-51.0); MEAN CELL VOLUME 106 fl (80.0-100.0); MEAN CORPUSCULAR HGB CONC 32 g/dl (33.0-37.0); MEAN PLATELET VOLUME 10.3 fl (7.4-10.4); MONO # 0.8 (0.1-0.6); MONO % 9.6 % (1.7-9.3); PLATELET COUNT 305 K/mm3 (130-400); RED BLOOD COUNT 2.72 M/mm3 (4.10-5.30); REDCELL DISTRIBUTION WIDTH-CV 12.7 % (11.5-14.5)
[2021-01-25 12:25] LABS: HEMATOCRIT 28.7 % (37.0-47.0); HEMOGLOBIN 9.2 g/dl (12.5-16.0); MEAN CORPUSCULAR HEMOGLOBIN 34 pg (27.0-31.0)
[2021-01-25 12:27] LABS: CALCIUM 10.2 mg/dL (8.4-10.2); CREATININE, serum 1.6 (0.52-1.25)
== END ==
LOC: ZLAB.STJ 10:26
PROVIDERS: Internal Medicine
DX: I10 Essential (primary) hypertension (principal); D64.9 Anemia, unspecified

== ENCOUNTER 2021-01-30 09:32 | Emergency (ER) | payer MEDICARE, MEDICAID ==
[~2021-01-30] VITALS: Ht 165.1 cm; Wt 61.4 kg
[~2021-01-30 09:32] MED LIST changes: -ASPIRIN 81M81 MG/TA2 PO; -FLONASEALLERGY NS; -GLUCOPHAGE500 MG/TAB PO; -PHENERGAN 25 TA25 MG PO; -SENOKOT S 50 MG1 TAB PO; -ZOFRAN ODT4 MG PO
[2021-01-30 09:38] VITALS: TEMP 98.5
[2021-01-30 12:37] LABS: BASO % 0.1 % (0.0-2.0); GRAN # 6.7 (1.4-6.5); GRAN % 75.3 % (42.2-75.2); LYMPH # 1.6 (1.2-3.4); LYMPH % 17.7 % (20.0-51.0); MEAN CELL VOLUME 103 fl (80.0-100.0); MEAN CORPUSCULAR HGB CONC 32 g/dl (33.0-37.0); MONO # 0.5 (0.1-0.6); MONO % 6.1 % (1.7-9.3); PLATELET COUNT 285 K/mm3 (130-400); RED BLOOD COUNT 2.93 M/mm3 (4.10-5.30); REDCELL DISTRIBUTION WIDTH-CV 12.4 % (11.5-14.5)
[2021-01-30 12:40] LABS: ALBUMIN 3.7 gm/dL (3.5-5.0); BILIRUBIN,TOTAL 0.5 mg/dL (0.0-1.0); CALCIUM 10.1 mg/dL (8.4-10.2); CREATININE, serum 2.61 (0.52-1.25); HEMATOCRIT 30.2 % (37.0-47.0); HEMOGLOBIN 9.7 g/dl (12.5-16.0); MEAN CORPUSCULAR HEMOGLOBIN 33 pg (27.0-31.0); POTASSIUM 4.7 mmol/L (3.4-5.0); TOTAL PROTEIN 7.6 gm/dL (6.4-8.2)
[2021-01-30] MEDS ORDERED: ZOFRAN ODT4 MG PO (13:16)
[2021-01-30] MEDS ORDERED: PHENERGAN 25 TA25 MG PO (13:28)
[2021-01-30 14:36] VITALS: BP 138/88; PULSE 93
== END 2021-01-30 14:37 | disposition home or self-care (01) ==
LOC: COL.ER 09:32
PROVIDERS: Personal Emergency Response Attendant
DX: I12.9 Hypertensive chronic kidney disease with stage 1 through stage 4 chronic kidney disease, or unspecified chronic kidney disease (principal); N18.9 Chronic kidney disease, unspecified; E78.5 Hyperlipidemia, unspecified; E11.22 Type 2 diabetes mellitus with diabetic chronic kidney disease; Z87.442 Personal history of urinary calculi; Z79.4 Long term (current) use of insulin; Z79.899 Other long term (current) drug therapy; Z88.2 Allergy status to sulfonamides
CPT/HCPCS: J2405; J7030

== ENCOUNTER 2021-02-05 12:37 | Observation (INO) | payer MEDICARE, MEDICAID ==
[~2021-02-05] VITALS: Ht 162.6 cm; Wt 59.1 kg
[~2021-02-05 12:37] MED LIST changes: +PHENERGAN 25 TA25 MG PO; +ZOFRAN ODT4 MG PO
[2021-02-05 13:40] LABS: HEMOGLOBIN 10.4 g/dl (12.5-16.0); MEAN CELL VOLUME 106 fl (80.0-100.0); MEAN CORPUSCULAR HEMOGLOBIN 33 pg (27.0-31.0); MEAN CORPUSCULAR HGB CONC 32 g/dl (33.0-37.0); MEAN PLATELET VOLUME 10.4 fl (7.4-10.4); PLATELET COUNT 291 K/mm3 (130-400); RED BLOOD COUNT 3.11 M/mm3 (4.10-5.30); REDCELL DISTRIBUTION WIDTH-CV 12.7 % (11.5-14.5)
[2021-02-05 13:42] LABS: HEMATOCRIT 32.9 % (37.0-47.0)
[2021-02-05 13:45] LABS: COLLECTION METHOD CATHETER
[2021-02-05 13:51] LABS: ALBUMIN 4.1 gm/dL (3.5-5.0); BILIRUBIN,TOTAL 0.4 mg/dL (0.0-1.0); CALCIUM 10.9 mg/dL (8.4-10.2); CREATININE, serum 1.59 (0.52-1.25); POTASSIUM 4.6 mmol/L (3.4-5.0); TOTAL PROTEIN 8.2 gm/dL (6.4-8.2)
[2021-02-05 13:58] LABS: LYMPHOCYTE 16 % (20.0-51.0); NEUTROPHILS 84 % (42.0-75.2)
[2021-02-05 13:59] LABS: PLATELET ESTIMATE NORMAL (NORMAL)
[2021-02-05 14:01] LABS: HYPOCHROMIA 1+
[2021-02-05 14:02] LABS: MUCOUS Present /lpf; PH 5 (5-8); URINE APPEARANCE Hazy; URINE BACTERIA None Seen /hpf; URINE BILIRUBIN Negative (NEGATIVE); URINE BLOOD 1+ (NEGATIVE); URINE COLOR Yellow; URINE GLUCOSE 2+ (NEGATIVE); URINE KETONE 1+ (NEGATIVE); URINE LEUKOCYTE ESTERASE Negative (NEGATIVE); URINE NITRATE Negative (NEGATIVE); URINE PROTEIN(semi-quant) Negative (NEGATIVE); URINE RBC None Seen /hpf; URINE UROBILINOGEN Negative (NEGATIVE); URINE WBC 0-2 /hpf
[2021-02-05 14:02] LABS: TROPONIN-I 0.012 ng/mL (0.000-0.035)
[2021-02-05] MEDS ORDERED: AGGRENOX ER 251 CER PO (17:31)
[2021-02-05] MEDS ORDERED: OXYCONTIN 10MG10 MG PO (17:32)
[2021-02-05] MEDS ORDERED: MIRALAX PA17 GM/Dose PO (17:33)
[2021-02-05] MEDS ORDERED: COZAAR100 MG PO (17:34)
[2021-02-05] MEDS ORDERED: ASPERCREME1 EACH TP (17:35)
[2021-02-05] MEDS ORDERED: PRAVACHOL 20MG20 MG PO (17:35)
[2021-02-05] MEDS ORDERED: NORVASC 10MG10 MG PO (17:36)
[2021-02-05] MEDS ORDERED: FOLIC ACID 11 MG/TA1 PO (17:37)
[2021-02-05] MEDS ORDERED: SENNA-LAX8.6 MG PO (17:38)
[2021-02-05] MEDS ORDERED: FLONASEALLERGY NS (17:41)
[2021-02-05] MEDS ORDERED: NORCO 325 MG-51 TAB PO (17:42)
[2021-02-05] MEDS ORDERED: ASPIRIN 81M81 MG/TA2 PO (17:49)
[2021-02-05] MEDS ORDERED: TYLENOL 325MG325 MG PO (17:49)
[2021-02-05] MEDS ORDERED: ZOFRAN 4MG T4 MG/TAB PO (17:50)
[2021-02-05] MEDS ORDERED: LEVEMIR100 U/ML SQ ×2 (17:51→17:52)
[2021-02-05] MEDS ORDERED: NOVOLOG 100U100 U/M1 SQ (17:53)
--- NOTE | 2021-02-05 22:33 | NUR ---
Pt came for Nausea and vomiting. Daughter was at the bedside. Bs was 46. Cherelle was called and notified and Oral glucose was administered. Rechecked later, Bs is 188. Will continue to monitor.
[2021-02-06] VITALS (8 sets, daily range): BP systolic 104–178; BP diastolic 58–93; PULSE 65–93; TEMP 98–99.1
[2021-02-06 08:36] LABS: MEAN CELL VOLUME 107 fl (80.0-100.0); MEAN CORPUSCULAR HGB CONC 32 g/dl (33.0-37.0); MEAN PLATELET VOLUME 11.6 fl (7.4-10.4); PLATELET COUNT 215 K/mm3 (130-400); REDCELL DISTRIBUTION WIDTH-CV 12.8 % (11.5-14.5)
[2021-02-06 08:41] LABS: HEMATOCRIT 25.6 % (37.0-47.0); HEMOGLOBIN 8.1 g/dl (12.5-16.0); MEAN CORPUSCULAR HEMOGLOBIN 34 pg (27.0-31.0)
[2021-02-06 08:48] LABS: CALCIUM 9.3 mg/dL (8.4-10.2); CHOLESTEROL RISK RATIO 2.9; CREATININE, serum 1.35 (0.52-1.25); POTASSIUM 3.9 mmol/L (3.4-5.0)
[2021-02-06 09:10] LABS: HYPOCHROMIA 2+; LYMPHOCYTE 32 % (20.0-51.0); MYELOCYTE 1 % (0-0); NEUTROPHILS 61 % (42.0-75.2); PLATELET ESTIMATE NORMAL (NORMAL)
[2021-02-06 09:27] LABS: THYROID STIMULATING HORMONE 0.631 uIU/mL (0.465-4.680)
--- NOTE | 2021-02-06 09:49 | NUR ---
Assessment complete. Pt is laying in bed upon entry, she is A/O x4. Her breathing is even and unlabored on 1L via NC. She denies SOB. Reports she is always in pain all over. Currently no N/V. But after taking several pills patient did vomit. One pill visualized. Pt able to swallow without complications, just unable to keep everything down. Purewick in place. Pt repositioned.
--- NOTE | 2021-02-06 11:25 | NUR ---
Sw did rounds with team. Care of plan is contact family to do a goals of care. Pallative care possible, but Shakira is off till the . RAUDEL Archuleta tried to call family, but no answer. Sw to keep following. Pt DPOA-HC is Wendi Urbanoeliel (ph# [phone]) and next of kin is Maria Del Carmen Stevens, daughter (ph # [phone]). The pt lives at [facility] and uses the residential pharmacy. PCP is Marlys Duenas. D/c: unknown at this time. Sw to await further recommendations and follow up as needed.
--- NOTE | 2021-02-06 15:21 | NUR ---
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 Worker faxed updates to Stevenson at [facility].
--- NOTE | 2021-02-06 18:50 | NUR ---
No further episodes of vomiting, but little intake this afternoon. Drowsy most of the day. POC discussed with patient's daughter by Dr. Carrero. Repositioning completed. No needs at this time.
--- NOTE | 2021-02-06 20:00 | NUR ---
Report received, assumed care for operation shift supervisor. Assessment complete. A&Ox3-very drowsy. VS stable. Denies pain/shortness of breath. States nausea comes in waves-currently no nausea but has not tolerated much PO intake. NS@50ml/hr to left hand INT. 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 Repositioned in bed with two assist. O2@1L/NC. Purewick in place with with clear yellow urine. Plan of care discussed for this shift to inlcude HS meds/nausea meds PRN/calling for questions/concerns. Verbalizes understanding/denies needs. Call light in reach. Will monitor.
--- NOTE | 2021-02-07 03:17 | NUR ---
Resting eyes closed. No s/s of pain or discomfort noted.
[2021-02-07 03:37] VITALS: BP 161/77; PULSE 86; TEMP 97.3
[2021-02-07 07:26] LABS: MEAN CELL VOLUME 105 fl (80.0-100.0); MEAN CORPUSCULAR HGB CONC 31 g/dl (33.0-37.0); MEAN PLATELET VOLUME 11.9 fl (7.4-10.4); PLATELET COUNT 195 K/mm3 (130-400); RED BLOOD COUNT 2.34 M/mm3 (4.10-5.30); REDCELL DISTRIBUTION WIDTH-CV 12.7 % (11.5-14.5)
[2021-02-07 07:27] LABS: HEMATOCRIT 24.5 % (37.0-47.0); HEMOGLOBIN 7.7 g/dl (12.5-16.0); MEAN CORPUSCULAR HEMOGLOBIN 33 pg (27.0-31.0)
[2021-02-07 07:36] LABS: CALCIUM 9.3 mg/dL (8.4-10.2); CREATININE, serum 1.24 (0.52-1.25); POTASSIUM 3.9 mmol/L (3.4-5.0)
[2021-02-07 07:38] VITALS: BP 144/55; PULSE 92; TEMP 98.4
--- NOTE | 2021-02-07 08:00 | NUR ---
PATIENT IN BED RESTING. ALERT AND ORIENTED X1. PATIENT WAS ABLE TO STATE WHERE SHE IS AT AT THIS TIME. PATIENT ON CLEAR LIQUID DIET, ABLE TO SWALLOW SMALL PILLS WITH WATER. REFUSED AGGRENOX, STATES THAT SHE WILL THROW UP IF SHE TAKES THIS PILL. PATIENT ABLE TO ANSWER QUESTIONS SLOWLY. PALLIATIVE CARE CONSULT TODAY. FAMILY AT BEDSIDE. LEFT HAND IV INFUSING NS AT 50ML/HR. PATIENT HAD BATH THIS MORNING. CONTRACTURE TO LEFT HAND. ULCER TO COCCYX, STAGE 2, MEPILEX IN PLACE. LEFT SIDE WEAKNESS, LEFT AKA. NO OTHER NEEDS AT THIS TIME. HEAD TO TOE ASSESSMENT COMPLETE. CALL LIGHT WITHIN REACH.
[2021-02-07 11:55] VITALS: BP 151/69; PULSE 86; TEMP 98.4
--- NOTE | 2021-02-07 13:35 | NUR ---
DR. LOPEZ WENT IN TO SEE PATIENT
--- NOTE | 2021-02-07 13:43 | NUR ---
Initial visit attempt; Patient's family member thanked for looking in on Ms. Lynch who was unable to respond to Pallet Assembler.
[2021-02-07 16:05] VITALS: BP 152/67; PULSE 91; TEMP 98.6
[2021-02-07 18:06] LABS: HEMATOCRIT 25.7 % (37.0-47.0); HEMOGLOBIN 8.2 g/dl (12.5-16.0)
--- NOTE | 2021-02-07 18:35 | NUR ---
FAMILY AT BEDSIDE MOST OF THE DAY. PATIENT REPOSITIONED THROUGHOUT DAY. TOLERATING MECHANICAL SOFT DIET. BED BATH PROVIDED. DENIES NEEDS AT THIS TIME. WILL REPORT OFF TO QUILL FIXER.
[2021-02-07 20:32] VITALS: BP 154/65; PULSE 88; TEMP 98.7
[2021-02-07 23:14] LABS: FOLATE (FOLIC ACID) 17.7 ng/mL (2.0-20.0)
[2021-02-08 00:05] VITALS: BP 137/63; PULSE 87; TEMP 99.2
--- NOTE | 2021-02-08 00:26 | NUR ---
Assessment completed, alert and oriented to self. Swallow her pills whole one at a time. Agrenox capsule opened and mix with apple sauce so she can swallow it with no difficulty. Left side is flacid. Repositioned to right. Have stage II ulcer in her coccyx covered with mepilex. Getting IVF at 50ml/hr. Most of the time she is asleep. Bed alarn set on and call light within reach. Continue to monitor.
[2021-02-08 04:11] VITALS: BP 146/61; PULSE 82; TEMP 98.7
[2021-02-08 07:04] LABS: MEAN CELL VOLUME 105 fl (80.0-100.0); MEAN CORPUSCULAR HGB CONC 32 g/dl (33.0-37.0); MEAN PLATELET VOLUME 10.9 fl (7.4-10.4); PLATELET COUNT 185 K/mm3 (130-400); RED BLOOD COUNT 2.22 M/mm3 (4.10-5.30); REDCELL DISTRIBUTION WIDTH-CV 12.3 % (11.5-14.5)
[2021-02-08 07:13] LABS: CALCIUM 8.8 mg/dL (8.4-10.2); CREATININE, serum 1.08 (0.52-1.25); POTASSIUM 3.7 mmol/L (3.4-5.0)
[2021-02-08 07:24] LABS: HEMATOCRIT 23.3 % (37.0-47.0); HEMOGLOBIN 7.4 g/dl (12.5-16.0); MEAN CORPUSCULAR HEMOGLOBIN 33 pg (27.0-31.0)
[2021-02-08 07:36] VITALS: BP 145/68; PULSE 82; TEMP 98.4
[2021-02-08 08:55] LABS: BASOPHIL 2 % (0-2); EOSINOPHIL 2 % (0-4); LYMPHOCYTE 25 % (20.0-51.0); METAMYELOCYTE 2 % (0-0); NEUTROPHILS 60 % (42.0-75.2); PLATELET ESTIMATE NORMAL (NORMAL)
[2021-02-08 08:56] LABS: HYPOCHROMIA 2+
[2021-02-08] MEDS ORDERED: SENOKOT S 50 MG1 TAB PO (08:57)
[2021-02-08] MEDS ORDERED: MIRALAX PA17 GM/Dose PO (08:57)
[2021-02-08 08:58] LABS: TEAR DROP CELLS 1+
[2021-02-08] MEDS ORDERED: GLUCOPHAGE500 MG/TAB PO (08:59)
[2021-02-08] MEDS ORDERED: NOVOLOG 100U100 U/M1 SQ (09:00)
--- NOTE | 2021-02-08 09:38 | NUR ---
PT SITTING UP EATING BREAKFAST WITH SPEECH THERAPY. AM MEDS GIVEN ORDERED. PT TO DISCHARGE TO [place] LATER TODAY. PT REFUSEED HAVING MEDICATIONS CRUSHED AND TOOK THEM WHOLE WITH SIPS OF WATER. IV TO LFT. PURE WICK TO CONTINUEOUS
--- NOTE | 2021-02-08 09:46 | NUR ---
Hermes faxed over updates to Stevenson. Pt to be d/c possbile today back to [facility].
--- NOTE | 2021-02-08 11:24 | NUR ---
Hermes spoke with Stevenson at [facility] and he informed me that 1pm for d/c. Hermes faxed over d/c orders. Hermes tried to call Wendi RIZO to inform her that the pt was d/c at 1 pm. Hermes left a voicemail and phone number for SALLIE to return call. Hermes will call back again before d/c.
[2021-02-08 11:41] VITALS: BP 126/99; PULSE 86; TEMP 98.4
--- NOTE | 2021-02-08 12:47 | NUR ---
REPORT CALLED TO [facility].
--- NOTE | 2021-02-08 13:36 | NUR ---
[facility] HERE TO TAKE PATIENT HOME. DISCHARGED .
== END 2021-02-08 13:40 ==
LOC: COL.ER 12:37 → SURG 17:52
PROVIDERS: Nurse Practitioner Primary Care; Physician Assistant; Student in an Organized Health Care Education/Training Program; ADMIT Internal Medicine
DX: R11.2 Nausea with vomiting, unspecified (principal); R13.10 Dysphagia, unspecified; K59.03 Drug induced constipation; E87.0 Hyperosmolality and hypernatremia; N17.9 Acute kidney failure, unspecified; D53.9 Nutritional anemia, unspecified; E78.5 Hyperlipidemia, unspecified; E11.649 Type 2 diabetes mellitus with hypoglycemia without coma; K21.9 Gastro-esophageal reflux disease without esophagitis; G89.29 Other chronic pain; M86.9 Osteomyelitis, unspecified; N18.9 Chronic kidney disease, unspecified; M81.0 Age-related osteoporosis without current pathological fracture; E86.0 Dehydration; I13.10 Hypertensive heart and chronic kidney disease without heart failure, with stage 1 through stage 4 chronic kidney disease, or unspecified chronic kidney disease; E11.22 Type 2 diabetes mellitus with diabetic chronic kidney disease; F32.9 Major depressive disorder, single episode, unspecified; Z86.73 Personal history of transient ischemic attack (TIA), and cerebral infarction without residual deficits; Z89.429 Acquired absence of other toe(s), unspecified side; Z90.710 Acquired absence of both cervix and uterus; Z79.891 Long term (current) use of opiate analgesic; Z79.899 Other long term (current) drug therapy; Z20.822 Contact with and (suspected) exposure to COVID-19; Z79.82 Long term (current) use of aspirin; Z79.4 Long term (current) use of insulin
CPT/HCPCS: 99232-AI; 99239; C9113; G0378; J0360; J1644; J1815; J2405; J7030

== ENCOUNTER → 2021-02-13 | Outpatient (REF) ==
[~2021-02-13] MED LIST changes: +ASPIRIN 81M81 MG/TA2 PO; +FLONASEALLERGY NS; +GLUCOPHAGE500 MG/TAB PO; +SENOKOT S 50 MG1 TAB PO
[2021-02-13 12:58] LABS: HEMATOCRIT 26.3 % (37.0-47.0); HEMOGLOBIN 8.2 g/dl (12.5-16.0)
== END ==
LOC: ZLAB.STJ 12:51
PROVIDERS: Internal Medicine
DX: I69.90 Unspecified sequelae of unspecified cerebrovascular disease (principal)

== ENCOUNTER → 2021-02-21 | Outpatient (CLI) | payer MEDICARE, MEDICAID ==
[2021-02-21 11:42] LABS: HEMATOCRIT 24.4 % (37.0-47.0); HEMOGLOBIN 7.6 g/dl (12.5-16.0)
[2021-02-21 11:47] LABS: CALCIUM 8.3 mg/dL (8.4-10.2); CREATININE, serum 0.96 (0.52-1.25); POTASSIUM 3.7 mmol/L (3.4-5.0)
== END ==
LOC: ZLAB.STJ 10:29
PROVIDERS: Internal Medicine
DX: D64.9 Anemia, unspecified (principal); I10 Essential (primary) hypertension

== ENCOUNTER → 2021-02-24 | Outpatient (CLI) | payer MEDICARE, MEDICAID ==
[2021-02-24 10:45] LABS: HEMATOCRIT 25.2 % (37.0-47.0); HEMOGLOBIN 8.1 g/dl (12.5-16.0)
== END ==
LOC: ZLAB.STJ 10:24
PROVIDERS: Internal Medicine
DX: D51.0 Vitamin B12 deficiency anemia due to intrinsic factor deficiency (principal)

== ENCOUNTER → 2021-03-14 | Outpatient (CLI) | payer MEDICARE, MEDICAID ==
[2021-03-14 11:25] LABS: HEMATOCRIT 28.6 % (37.0-47.0); HEMOGLOBIN 9.1 g/dl (12.5-16.0)
== END ==
LOC: ZLAB.STJ 11:14
PROVIDERS: Internal Medicine
DX: D64.9 Anemia, unspecified (principal)

== ENCOUNTER → 2021-05-18 | Outpatient (CLI) | payer MEDICARE, MEDICAID ==
[2021-05-18 17:37] LABS: CREATININE, serum 1.09 mg/dL (0.57-1.11); POTASSIUM 4.6 mmol/L (3.4-5.0)
[2021-05-18 17:38] LABS: CALCIUM 9.9 mg/dL (8.4-10.2)
[2021-05-18 17:42] LABS: HEMOGLOBIN 10.5 g/dl (12.5-16.0)
[2021-05-18 17:49] LABS: HEMATOCRIT 33.6 % (37.0-47.0)
== END ==
LOC: ZLAB.STJ 16:59
PROVIDERS: Internal Medicine
DX: E11.311 Type 2 diabetes mellitus with unspecified diabetic retinopathy with macular edema (principal); D64.9 Anemia, unspecified

== ENCOUNTER → 2021-06-05 | Outpatient (CLI) | payer MEDICARE, MEDICAID ==
[2021-06-05 18:09] LABS: CHOLESTEROL RISK RATIO 4.6
== END ==
LOC: ZLAB.STJ 17:51
PROVIDERS: Internal Medicine
DX: E78.5 Hyperlipidemia, unspecified (principal); E11.311 Type 2 diabetes mellitus with unspecified diabetic retinopathy with macular edema

== ENCOUNTER → 2021-09-05 | Outpatient (CLI) | payer MEDICARE, MEDICAID ==
[2021-09-05 10:32] LABS: BASO % 0.6 % (0.0-2.0); EOS # 0.2 K/mm3 (0.0-0.7); EOS % 2.4 % (0.0-4.0); GRAN # 3.8 K/mm3 (1.4-6.5); GRAN % 53.5 % (42.2-75.2); LYMPH # 2.4 K/mm3 (1.2-3.4); LYMPH % 34.2 % (20.0-51.0); MEAN CELL VOLUME 98 fl (80.0-100.0); MEAN CORPUSCULAR HGB CONC 32 g/dl (33.0-37.0); MEAN PLATELET VOLUME 10.4 fl (7.4-10.4); MONO # 0.6 K/mm3 (0.1-0.6); PLATELET COUNT 318 K/mm3 (130-400); RED BLOOD COUNT 3.11 M/mm3 (4.10-5.30); REDCELL DISTRIBUTION WIDTH-CV 12.9 % (11.5-14.5)
[2021-09-05 10:36] LABS: HEMATOCRIT 30.6 % (37.0-47.0); HEMOGLOBIN 9.9 g/dl (12.5-16.0); MEAN CORPUSCULAR HEMOGLOBIN 32 pg (27-31)
[2021-09-05 10:43] LABS: ALBUMIN 3.7 gm/dL (3.4-4.8); BILIRUBIN,TOTAL 0.2 mg/dL (0.2-1.2); CALCIUM 9.3 mg/dL (8.4-10.2); CREATININE, serum 1.71 mg/dL (0.57-1.11); POTASSIUM 4.4 mmol/L (3.5-4.5); TOTAL PROTEIN 7.7 gm/dL (6.2-8.1)
== END ==
LOC: ZLAB.STJ 09:31
PROVIDERS: Internal Medicine
DX: N18.32 Chronic kidney disease, stage 3b (principal); D63.1 Anemia in chronic kidney disease; Z79.4 Long term (current) use of insulin

== ENCOUNTER → 2021-11-16 | Outpatient (CLI) | payer MEDICARE, MEDICAID ==
[2021-11-16 10:08] LABS: BASO % 0.5 % (0.0-2.0); EOS # 0.2 K/mm3 (0.0-0.7); EOS % 2.7 % (0.0-4.0); GRAN # 3.9 K/mm3 (1.4-6.5); GRAN % 52.7 % (42.2-75.2); HEMATOCRIT 32.9 % (37.0-47.0); HEMOGLOBIN 10.3 g/dl (12.5-16.0); LYMPH # 2.6 K/mm3 (1.2-3.4); LYMPH % 35.4 % (20.0-51.0); MEAN CELL VOLUME 100 fl (80.0-100.0); MEAN CORPUSCULAR HEMOGLOBIN 31 pg (27-31); MEAN CORPUSCULAR HGB CONC 31 g/dl (33.0-37.0); MEAN PLATELET VOLUME 10.7 fl (7.4-10.4); MONO # 0.6 K/mm3 (0.1-0.6); PLATELET COUNT 278 K/mm3 (130-400); RED BLOOD COUNT 3.28 M/mm3 (4.10-5.30); REDCELL DISTRIBUTION WIDTH-CV 12.7 % (11.5-14.5)
[2021-11-16 10:09] LABS: ALBUMIN 3.7 gm/dL (3.4-4.8); BILIRUBIN,TOTAL 0.2 mg/dL (0.2-1.2); CALCIUM 9.2 mg/dL (8.4-10.2); CREATININE, serum 1.34 mg/dL (0.57-1.11); POTASSIUM 4.1 mmol/L (3.5-4.5); TOTAL PROTEIN 7.6 gm/dL (6.2-8.1)
== END ==
LOC: ZLAB.STJ 09:40
PROVIDERS: Internal Medicine
DX: Z01.89 Encounter for other specified special examinations (principal)

== ENCOUNTER → 2022-02-26 | Outpatient (CLI) | payer MEDICARE, MEDICAID ==
[2022-02-26 14:41] LABS: CALCIUM 9.4 mg/dL (8.4-10.2); CREATININE, serum 2.06 mg/dL (0.57-1.11); POTASSIUM 4.6 mmol/L (3.5-4.5)
[2022-02-26 14:44] LABS: HEMATOCRIT 31.2 % (37.0-47.0); HEMOGLOBIN 9.8 g/dl (12.5-16.0)
== END ==
LOC: ZLAB.STJ 14:22
PROVIDERS: Internal Medicine
DX: D64.9 Anemia, unspecified (principal); I10 Essential (primary) hypertension; E11.311 Type 2 diabetes mellitus with unspecified diabetic retinopathy with macular edema

== ENCOUNTER → 2022-03-12 | Outpatient (CLI) | payer MEDICARE, MEDICAID ==
[2022-03-12 11:05] LABS: CALCIUM 9.6 mg/dL (8.4-10.2); CREATININE, serum 1.33 mg/dL (0.57-1.11); POTASSIUM 4.5 mmol/L (3.5-4.5)
== END ==
LOC: ZLAB.STJ 10:41
PROVIDERS: Internal Medicine
DX: I10 Essential (primary) hypertension (principal)

== ENCOUNTER → 2022-03-22 | Outpatient (CLI) | payer MEDICARE, MEDICAID | LOC: ZCOL.LAB 15:57 | DX: Z01.89 Encounter for other specified special examinations (principal) ==

== ENCOUNTER → 2022-03-22 | Outpatient (CLI) | payer MEDICARE, MEDICAID ==
[2022-03-22 17:00] LABS: BASO % 0.6 % (0.0-2.0); EOS # 0.2 K/mm3 (0.0-0.7); EOS % 2.7 % (0.0-4.0); GRAN # 4.7 K/mm3 (1.4-6.5); GRAN % 66.1 % (42.2-75.2); HEMOGLOBIN 10.6 g/dl (12.5-16.0); LYMPH # 1.6 K/mm3 (1.2-3.4); LYMPH % 22.7 % (20.0-51.0); MEAN CELL VOLUME 96 fl (80.0-100.0); MEAN CORPUSCULAR HEMOGLOBIN 31 pg (27-31); MEAN CORPUSCULAR HGB CONC 32 g/dl (33.0-37.0); MONO # 0.5 K/mm3 (0.1-0.6); MONO % 7.5 % (1.7-9.3); PLATELET COUNT 283 K/mm3 (130-400); RED BLOOD COUNT 3.42 M/mm3 (4.10-5.30); REDCELL DISTRIBUTION WIDTH-CV 12.5 % (11.5-14.5)
[2022-03-22 17:01] LABS: HEMATOCRIT 32.7 % (37.0-47.0)
[2022-03-22 17:07] LABS: ALBUMIN 3.8 gm/dL (3.4-4.8); BILIRUBIN,TOTAL 0.2 mg/dL (0.2-1.2); CREATININE, serum 1.38 mg/dL (0.57-1.11); POTASSIUM 5.1 mmol/L (3.5-4.5); TOTAL PROTEIN 7.9 gm/dL (6.2-8.1)
== END ==
LOC: ZCOL.LAB 16:00
PROVIDERS: Internal Medicine
DX: I10 Essential (primary) hypertension (principal)

== ENCOUNTER 2022-10-20 15:23 | Emergency (ER) | payer MEDICARE, MEDICAID ==
[~2022-10-20] VITALS: Ht 162.6 cm; Wt 59.1 kg
[2022-10-20 15:33] VITALS: TEMP 97.8
[2022-10-20 16:57] LABS: BASO % 0.5 % (0.0-2.0); EOS # 0.3 K/mm3 (0.0-0.7); EOS % 3.2 % (0.0-4.0); GRAN % 56.6 % (42.2-75.2); LYMPH # 2.5 K/mm3 (1.2-3.4); LYMPH % 27.9 % (20.0-51.0); MEAN CELL VOLUME 97 fl (80.0-100.0); MEAN CORPUSCULAR HGB CONC 33 g/dl (33.0-37.0); MEAN PLATELET VOLUME 10.2 fl (7.4-10.4); MONO % 11.2 % (1.7-9.3); PLATELET COUNT 252 K/mm3 (130-400); RED BLOOD COUNT 2.88 M/mm3 (4.10-5.30); REDCELL DISTRIBUTION WIDTH-CV 13.8 % (11.5-14.5)
[2022-10-20 16:58] LABS: HEMOGLOBIN 9.1 g/dl (12.5-16.0); MEAN CORPUSCULAR HEMOGLOBIN 32 pg (27-31)
[2022-10-20 17:18] LABS: ALBUMIN 3.4 gm/dL (3.4-4.8); BILIRUBIN,TOTAL 0.2 mg/dL (0.2-1.2); C-REACTIVE PROTEIN 5.75 mg/dL (0.00-0.50); CALCIUM 9.4 mg/dL (8.4-10.2); CREATININE, serum 5.34 mg/dL (0.57-1.11); TOTAL PROTEIN 7.5 gm/dL (6.2-8.1)
[2022-10-20 17:19] LABS: TROPONIN-I 0.029 ng/mL (0.00-0.033)
[2022-10-20 17:40] LABS: URINE APPEARANCE Cloudy (CLEAR/HAZY); URINE COLOR Yellow (YELLOW)
[2022-10-20 17:41] LABS: POTASSIUM 5.9 mmol/L (3.5-4.5)
[2022-10-20 17:41] LABS: URINE GLUCOSE Negative (NEGATIVE); URINE KETONE TRACE (NEGATIVE); URINE PROTEIN(semi-quant) 2+ (NEGATIVE); URINE UROBILINOGEN 0.2 E.U/dL (0.2-1.0)
[2022-10-20 17:42] LABS: URINE BLOOD 2+ (NEGATIVE); URINE NITRATE Negative (NEGATIVE)
[2022-10-20 17:44] LABS: SQUAMOUS EPITHELIAL >50 /hpf (0-10); URINE BACTERIA Many /hpf (NONE SEEN); URINE RBC >50 /hpf (0-2)
[2022-10-20 17:45] VITALS: BP 106/77; PULSE 60
[2022-10-20 17:46] LABS: COLLECTION METHOD CATHETER
== END 2022-10-20 18:00 | disposition short-term general hospital (02) ==
LOC: COL.ER 15:23
PROVIDERS: Nurse Practitioner
DX: R41.82 Altered mental status, unspecified (principal); R00.1 Bradycardia, unspecified; N39.0 Urinary tract infection, site not specified; I69.354 Hemiplegia and hemiparesis following cerebral infarction affecting left non-dominant side; I95.9 Hypotension, unspecified; I12.9 Hypertensive chronic kidney disease with stage 1 through stage 4 chronic kidney disease, or unspecified chronic kidney disease; E11.22 Type 2 diabetes mellitus with diabetic chronic kidney disease; N18.9 Chronic kidney disease, unspecified; E11.43 Type 2 diabetes mellitus with diabetic autonomic (poly)neuropathy; K31.84 Gastroparesis; Z28.310 Unvaccinated for COVID-19
CPT/HCPCS: J0461; J0612; J0696; J1265; J2310; J7030; J7040

== ENCOUNTER → 2023-08-13 | Outpatient (CLI) | payer MEDICARE, MEDICAID | LOC: MHCPAIN 13:51 | DX: M54.50 Low back pain, unspecified (principal); I69.359 Hemiplegia and hemiparesis following cerebral infarction affecting unspecified side; M79.18 Myalgia, other site | CPT/HCPCS: G0463 ==

== ENCOUNTER → 2023-09-23 | Outpatient (CLI) | payer MEDICARE, MEDICAID | LOC: MHCPAIN 10:47 | DX: M54.50 Low back pain, unspecified (principal); I69.359 Hemiplegia and hemiparesis following cerebral infarction affecting unspecified side; M79.18 Myalgia, other site; Z89.612 Acquired absence of left leg above knee | CPT/HCPCS: G0463 ==